=== PATIENT | male | born 1970 | race African-American/Black ===

== ENCOUNTER 2017-03-05 17:25 | Emergency (ER) | payer SELFPAY | END 2017-03-05 22:38 | disposition home or self-care (01) | LOC: D.ER 17:25 | DX: J06.9 Acute upper respiratory infection, unspecified (principal); J40 Bronchitis, not specified as acute or chronic ==

== ENCOUNTER 2018-11-25 00:08 | Emergency (ER) | payer OTHER ==
[~2018-11-25] VITALS: Ht 167.6 cm; Wt 113.6 kg
[2018-11-25 00:41] VITALS: Ht 167.6 cm; Wt 113.6 kg
[2018-11-25 02:47] LABS: BASOPHILS 0.3 % (0-2); EOSINOPHILS 2.5 % (0-7); HEMATOCRIT 39.5 % (42.0-54.0); HEMOGLOBIN 14.5 g/dL (13.5-17.5); IMMATURE GRANULOCYTES 0.3 % (0-5); LYMPHOCYTES 35.7 % (15-50); MCH 29.4 pg (26.0-34.0); MCHC 36.7 g/dL (31.0-37.0); MCV 80.1 fL (80.0-100.0); MEAN PLATELET VOLUME 9.6 fL (7.4-10.4); MONOCYTES 10.2 % (2-11); PLATELET COUNT 214 10x3/uL (130-400); RBC 4.93 10x6/uL (4.20-6.10); RDW 13.3 % (11.5-14.5); WBC 6.4 10x3/uL (4.8-10.8)
[2018-11-25 02:52] LABS: APPEARANCE CLEAR (CLEAR); BILIRUBIN NEGATIVE (NEGATIVE); COLOR YELLOW (YELLOW); GLUCOSE NEGATIVE (NEGATIVE); KETONE NEGATIVE (NEGATIVE); NITRITE NEGATIVE (NEGATIVE); PROTEIN NEGATIVE (NEGATIVE); UROBILINOGEN NORMAL (NORMAL)
[2018-11-25 03:02] LABS: ANION GAP 11.1 mmol/L (8-16); BILIRUBIN - TOTAL 0.94 mg/dL (0.2-1.3); CALCIUM 9.1 mg/dL (8.5-10.1); CARBON DIOXIDE 30.6 mmol/L (21.0-32.0); CREATININE - SERUM 1.5 mg/dL (0.6-1.3); PROTEIN - SERUM 8.1 g/dL (6.4-8.2)
[2018-11-25 03:05] LABS: POTASSIUM - SERUM 2.7 mmol/L (3.5-5.1)
[2018-11-25] MEDS ORDERED: IBUPROFEN800 MG PO (03:22)
[2018-11-25] MEDS ORDERED: CYCLOBENZAPRINE10 MG PO (03:22)
[2018-11-25] MEDS ORDERED: ACETAMINOPHEN500 M1 PO (03:22)
[2018-11-25 03:35] VITALS: BP 140/92
[2018-11-29 11:10] LABS: CHLAMYDIA TRACHOMATIS, NAA Negative (Negative)
== END 2018-11-25 03:34 | disposition home or self-care (01) ==
LOC: D.ER 00:08
PROVIDERS: Family Medicine
DX: N50.812 Left testicular pain (principal); E87.5 Hyperkalemia; D43.3 Neoplasm of uncertain behavior of cranial nerves; I86.1 Scrotal varices; Z20.2 Contact with and (suspected) exposure to infections with a predominantly sexual mode of transmission

== ENCOUNTER → 2020-08-14 14:07 | Outpatient (CLI) | payer BC ==
[2018-11-25 00:41] VITALS: BMI 40.4
[~2020-08-14 14:07] MED LIST: ACETAMINOPHEN500 M1 PO; CYCLOBENZAPRINE10 MG PO; IBUPROFEN800 MG PO
== END | disposition home or self-care (01) ==
LOC: D.MRI 14:07
PROVIDERS: ATTEND Clinical Nurse Specialist Family Health
DX: M25.561 Pain in right knee (principal)